=== PATIENT | female | born 1995 | race Caucasian/White ===

== ENCOUNTER 2017-02-25 05:24 | Emergency (ER) | payer BC ==
[~2017-02-25] VITALS: Ht 172.7 cm; Wt 62.0 kg
[2017-02-25 05:28] VITALS: BP 134/82
[2017-02-25] MEDS ORDERED: LIDOCAINE 1%, 20ML ONE (05:52)
[2017-02-25] MEDS ORDERED: DIPH,PERTUSS(ACELL),TET VAC/PF 0.5 ML IM-VACC ONE ×2 (05:53→06:00)
[2017-02-25] MEDS ORDERED: LIDOCAINE-MPF 2% ,5ML ONE (05:53)
[2017-02-25] MEDS ORDERED: LIDOCAINE 2%, 20ML SQ ONE (06:00)
[2017-02-25] MEDS ORDERED: BACITRACIN ZINC OINT 500U/GM, 0.9 GM ONE (08:12)
== END 2017-02-25 08:26 | disposition home or self-care (01) ==
LOC: ED 08:20
DX: S81.811A Laceration without foreign body, right lower leg, initial encounter (principal); X58.XXXA Exposure to other specified factors, initial encounter; Y93.89 Activity, other specified; Y92.009 Unspecified place in unspecified non-institutional (private) residence as the place of occurrence of the external cause; Y99.8 Other external cause status
CPT/HCPCS: 12004; 73590; 73610; 90471; 90715; 99284; J3490